=== PATIENT | male | born 1995 | race Caucasian/White ===

== ENCOUNTER 2016-11-14 11:20 | Emergency (ER) | payer SELFPAY ==
[2016-11-14 11:25] VITALS: BP 136/84
--- NOTE | 2016-11-14 11:32 | ED Physician Documentation ---
PD HPI UPPER EXT INJURY - Stated complaint Stated Complaint: FINGER NUMB - Chief complaint Chief Complaint: Ext Problem - History obtained from History obtained from: Patient - History of Present Illness Location: Right, Finger Type of injury: Twist (he was not aware of injury per se, but was grappling with others, and then noted that his finger tip would not extend. Some pain at the DIP dorsally, but otherwise did nto abruptly hurt.) Timing - onset: How many days ago (2) Timing - duration: Days (2) Timing - details: Abrupt onset, Still present Worsened by: Moving Associated symptoms: Weakness (unable to extend at DIP joint, otherwise good motion other joints.) Similar symptoms before: Has not had sx before Recently seen: Not recently seen Review of Systems Skin: denies: Abrasion (s), Laceration (s) Neurologic: reports: Focal weakness, Numbness (just at DIP joint and top of distal finger. Palmar pad with good sensation.) PD PAST MEDICAL HISTORY - Past Medical History Musculoskeletal: None - Past Surgical History Past Surgical History: No HEENT: Tonsil/Adenoidectomy - Present Medications Home Medications: Ambulatory Orders Medication Instructions Recorded Confirmed No Known Home Medications [No 12/11/12 12/11/12 Known Home Medications] - Allergies Allergies/Adverse Reactions: Allergies Allergy/AdvReac Type Severity Reaction Status Date / Time No Known Drug Allergies Allergy Verified 12/11/12 13:14 - Social History Does the pt smoke?: No Smoking Status: Never smoker Does the pt drink ETOH?: No Does the pt have substance abuse?: No - Immunizations Immunizations are current?: Yes - POLST Patient has POLST: No PD ED PE NORMAL - Vitals Vital signs reviewed: Yes - General General: Alert and oriented X 3, No acute distress, Well developed/nourished - Derm Derm: Normal color, Warm and dry - Extremities Extremities: Other (right ring finger DIP with some tenderness dorsally without swelling/effusion. He is unable to extend at DIP and the finger tip has drop at DIP. Flexion is good at IPs and CMPs. Extension is good at PIP and MCP. This is c/w extensor insertion disruption. ) Results - Vitals Vitals: Vital Signs - 24 hr 11/14/16 11:23 Temperature 36.7 C Heart Rate 78 Respiratory 18 Rate Blood Pressure 136/84 H O2 Saturation 100 Oxygen O2 Source Room air - Rads (name of study) finger xray Radiology: Prelim report reviewed, EMP read contemporaneously (no fractures) PD MEDICAL DECISION MAKING - ED course Complexity details: reviewed results, considered differential, d/w patient Departure - Departure Disposition: 01 Home, Self Care Clinical Impression: Rupture of extensor tendon of finger Condition: Stable Record reviewed to determine appropriate education?: Yes Instructions: ED Rupture Tendon Finger Follow-Up: Boris Gutierrez MD [Provider Admit Priv/Credential] - Comments: Keep the finger splinted in extension for 3-4 weeks. Followup with orthopedics next week to see how it is healing initially. Splint will normally heal it the majority of the time but there is potential for needing surgical repair if it's not. Tylenol or ibuprofen if needed for her pain. Call the orthopedist today for an appointment for next week. Discharge Date/Time: 11/14/16 12:03
--- NOTE | 2016-11-14 11:50 | XRAY Preliminary Report ---
Exam: XR Finger(s) RT IMPRESSION: Normal digit radiography. [facility] SITE ID: [id number]
--- NOTE | 2016-11-14 11:53 | XRAY Report ---
EXAM: RIGHT FOURTH DIGIT RADIOGRAPHY EXAM DATE: 11/14/2016 11:38 AM. CLINICAL HISTORY: Injury. Injured 11/10/2016. COMPARISON: None. TECHNIQUE: 3 views. FINDINGS: Bones: Normal. No fracture or bone lesion. Joints: Normal. No subluxations. Soft Tissues: Normal. No soft tissue swelling. IMPRESSION: Normal digit radiography. [facility] Referring Provider Line: [phone] SITE ID: [id number]
== END 2016-11-14 12:03 | disposition home or self-care (01) ==
LOC: ED 11:20
DX: S66.314A Strain of extensor muscle, fascia and tendon of right ring finger at wrist and hand level, initial encounter (principal); W50.0XXA Accidental hit or strike by another person, initial encounter; Y93.83 Activity, rough housing and horseplay
CPT/HCPCS: 29130; 73140; 99283